=== PATIENT | female | born 1945 | race Caucasian/White ===

== ENCOUNTER 2020-09-16 23:02 | Observation (INO) | payer MEDICARE, BC ==
[~2020-09-16] VITALS: Ht 160 cm; Wt 55.3 kg
[~2020-09-16 23:02] MED LIST: ASPIR 8181 MG PO; CLOPIDOGREL75 MG PO; LISINOPRIL40 MG PO
[2020-09-16] MEDS ORDERED: METHYLPREDNISOLONE SOD SUCC 125 MG/2ML VIAL IV ONE (23:15)
[2020-09-16] MEDS ORDERED: DIPHENHYDRAMINE HCL INJ 50 MG/ML VIAL IV ONE (23:15)
[2020-09-16] MEDS ORDERED: METHYLPREDNISOLONE SOD SUCC 125 MG/2ML VIAL ONE (23:19)
[2020-09-16] MEDS ORDERED: DIPHENHYDRAMINE HCL INJ 50 MG/ML VIAL ONE (23:19)
[2020-09-16] MEDS ORDERED: FAMOTIDINE 20 MG/2 ML VIAL IV ONE (23:19)
[2020-09-16 23:20] LABS: BASOPHILS # (AUTO) 0.1 (0.0-0.1); BASOPHILS % 1.2 % (0.0-1.0); EOSINOPHILS # (AUTO) 0.5 (0.0-0.4); EOSINOPHILS % 6.6 % (0.0-6.0); HEMATOCRIT 39.5 % (34.2-44.1); HEMOGLOBIN 13.4 g/dL (12.0-16.0); LYMPHOCYTES # (AUTO) 2.4 (1.0-3.2); LYMPHOCYTES % 35.6 % (18.0-39.1); MEAN CORPUSCULAR HEMOGLOBIN 32.4 pg (28-32); MEAN CORPUSCULAR HGB CONC 33.9 g/dL (31-35); MEAN CORPUSCULAR VOLUME 95.6 fL (81-99); MONOCYTES # (AUTO) 0.9 (0.2-0.8); MONOCYTES % 12.6 % (4.4-11.3); NEUTROPHILS % 43.9 % (38.7-80.0); PLATELET COUNT 264 x10e3/uL (140-360); RED BLOOD COUNT 4.13 x10e6/uL (3.6-5.1); RED CELL DISTRIBUTION WIDTH 12.4 % (11.7-14.4)
[2020-09-16 23:40] LABS: ALBUMIN 4.5 g/dL (3.5-5.0); ALBUMIN/GLOBULIN RATIO 1.3 (0.8-2.0); ANION GAP 17.9 mmol/L (8-16); CALCIUM 9.2 mg/dL (8.4-10.2); CREATININE, SERUM 1.09 mg/dL (0.57-1.11); POTASSIUM 3.9 mmol/L (3.5-5.1)
[2020-09-17] VITALS (7 sets, daily range): BP systolic 149–183; BP diastolic 64–86
[2020-09-17] MEDS ORDERED: ONDANSETRON HCL INJ 2MG/ML 2ML 2 MG/ML VIAL IV PRN (00:45)
[2020-09-17] MEDS ORDERED: SODIUM CHLORIDE 0.9% 1000ML 1,000 ML IV SCH (00:45)
[2020-09-17] MEDS ORDERED: HYDRALAZINE HCL 20 MG/ML VIAL IV PRN (00:45)
[2020-09-17] MEDS: DIPHENHYDRAMINE HCL INJ 50 MG/ML VIAL IV SCH ×2 (06:00→11:11)
[2020-09-17] MEDS: METHYLPREDNISOLONE SOD SUCC 40 MG/ML VIAL 1ML IV SCH ×2 (06:00→11:11)
[2020-09-17] MEDS ORDERED: ALBUTEROL0.63 MG/3 IH (06:13)
[2020-09-17] MEDS: FAMOTIDINE 20 MG/2 ML VIAL IV SCH ×2 (08:13→16:00)
[2020-09-17] MEDS ORDERED: FAMOTIDINE 20 MG/2 ML VIAL IV SCH (09:00)
[2020-09-17] MEDS ORDERED: NORVASC10 MG PO (12:42)
[2020-09-17] MEDS ORDERED: METOPROLOL SUCC25 MG PO (12:44)
[2020-09-17] MEDS ORDERED: METOPROLOL SUCCINATE 25 MG TAB XL PO SCH (12:45)
[2020-09-17] MEDS ORDERED: AMLODIPINE BESYLATE 10 MG TAB PO SCH (12:45)
[2020-09-17] MEDS ORDERED: BENADRYL25 M1 PO (12:47)
== END 2020-09-17 18:32 | disposition home or self-care (01) ==
LOC: ER 23:09 → ERHOLD 09-17 00:39 → MED/SURG3 09-17 00:50
PROVIDERS: ADMIT Internal Medicine; ATTEND Internal Medicine
DX: T78.3XXA Angioneurotic edema, initial encounter (principal); I10 Essential (primary) hypertension; I73.9 Peripheral vascular disease, unspecified; F17.210 Nicotine dependence, cigarettes, uncomplicated; Z20.822 Contact with and (suspected) exposure to COVID-19; T44.5X5A Adverse effect of predominantly beta-adrenoreceptor agonists, initial encounter
CPT/HCPCS: 36415; 70450; 80053; 85025; 86850; 86900; 93005; 99285; G0378; J0360; J1200; J2920; J2930; U0002